=== PATIENT | male | born 1970 | race Caucasian/White ===

== ENCOUNTER → 2016-09-24 | Outpatient (CLI) | payer BC ==
[~2016-09-24] MED LIST: BUPROPION HCL300 MG PO; HUMALOG100 U/ML SC; INSULIN GL100 UNITS/ SC; LEVOTHYROXINE0.05 M2 PO; LISINOPRIL2.5 M1 PO; OMEPRAZOLE20 MG PO; VIMOVO 20 MG-501 TCP PO
--- NOTE | 2016-09-24 10:24 | RADIOLOGY REPORT PS360 ---
OCI-[id number]-PT-UNI-3 VIEWS HISTORY: Limited range of motion, pain with movement LT ANTERIOR SHOULDER PAIN ORDERING PHYSICIAN: Rahul Santoyo MD PATIENT AGE: 46 years COMPARISON: None FINDINGS: No fracture or dislocation. Mild osteoarthritic change of the glenohumeral joint. There is some mild sclerosis involving the humeral head with some minimal cortical regularity. Early avascular necrosis is a consideration. MRI may be of further value. An area of coarse curvilinear calcification is present over the humeral head medially and may represent capsular calcification. IMPRESSION: 1. Mild osteoarthritic change of the glenohumeral joint with nonspecific sclerosis of the humeral head which may be seen with avascular necrosis. MRI may be of further value. 2. Coarse calcification along humeral head medially and may represent capsular calcification
== END ==
LOC: RAD 08:42
DX: M25.512 Pain in left shoulder (principal)

== ENCOUNTER → 2016-09-24 | Outpatient (CLI) | payer BC ==
[2016-09-24 08:24] LABS: HEMOGLOBIN 13.9 g/dL (14.1-18.0); LYMPH # 1.2 K/mm3 (0.7-4.5); LYMPH % 36.8 % (10-50)
[2016-09-24 09:16] LABS: BUN 12 mg/dL (7-18)
[2016-09-24 09:17] LABS: GFR (ESTIMATED) 59 ML/MIN (>60)
== END ==
LOC: LAB 08:05
PROVIDERS: Internal Medicine Adolescent Medicine
DX: M25.512 Pain in left shoulder (principal); E10.9 Type 1 diabetes mellitus without complications